=== PATIENT | female | born 1950 | race Caucasian/White ===

== ENCOUNTER 2017-01-22 11:31 | Observation (INO) | payer OTHER ==
[~2017-01-22] VITALS: Ht 160 cm; Wt 94.3 kg
--- NOTE | ~2017-01-22 | EKG ---
PATIENT: MACHELLE MONROE UNIT #: [id number] Ventricular Rate: 60 BPM Atrial Rate: 60 BPM P-R Interval: 134 ms QRS Duration: 78 ms Q-T Interval: 442 ms QTC Calculation(Bezet): 442 ms P Century: 15 degrees Calculated R Century: 28 degrees Calculated T Century: 20 degrees Diagnosis Line: Normal sinus rhythm Diagnosis Line: Normal ECG Diagnosis Line: When compared with ECG of 17-MAY-2014 06:37, Diagnosis Line: Nonspecific T wave abnormality no longer evident Diagnosis Line: in Anterior leads Diagnosis Line: Confirmed by MARIA C QIU MD ([id number]) on 01/24/2017 Diagnosis Line: 2:49:07 PM INTERPRETING MD: UYEN JENKINS
--- NOTE | ~2017-01-22 | DS ---
Unit #: [id number] #: [id number] Patient: MACHELLE GALICIA [id number] [address] [address] [id number] I MR#: [id number] NAME: MACHELLE GALICIA. ROOM: [facility] Age: 66 Sex: F Admission Date: 01/22/2017 : 1950 Discharge Date: 01/23/2017 Attending Physician: Karissa Gilbert M.D. Primary Care Physician: Garcia Peace M.D. DISCHARGE SUMMARY PRINCIPAL DIAGNOSES 1. Syncope secondary to orthostatic hypotension. 2. Atypical chest pain. 3. Dementia, moderate. 4. History of depression. 5. Hyperlipidemia. 6. Gastroesophageal reflux disease. 7. Obesity. 8. Remote history of breast cancer. 9. Irritable bowel syndrome. CONSULTANTS Dr. Posada - Cardiology. PROCEDURES 1. Two dimensional echocardiogram, report of which has not made it to the chart. 2. Chest x-ray on January 22, 2017, with no acute findings. Minimally tortuous aorta noted. CLINICAL HISTORY/HOSPITAL COURSE Ms. Galicia is a 66-year-old female who was brought to the emergency department after passing out on the way to [facility]. Patient was placed in observation for further evaluation. Cardiology was consulted and patient was found to have positive orthostatics. She has a history of orthostatic hypotension. She is also on Zoloft which occasionally can cause orthostasis. Her dose of ProAmatine has been increased and her orthostasis has resolved. I also am going to discontinue her Zoloft. Other chronic conditions remain stable and she can be discharged home today. DISCHARGE CONDITION Stable. DISCHARGE STATUS Discharge to home. DISCHARGE MEDICATIONS 1. ProAmatine 10 mg p.o. t.i.d. 2. Namenda 10 mg b.i.d. 3. Donepezil 10 mg at bedtime. 4. Lipitor 10 mg daily. 5. Omeprazole 40 mg daily. Unit #: [id number] #: [id number] Patient: MACHELLE GALICIA 6. Vitamin D3 1000 units p.o. daily. 7. Please note - I am discontinuing Zoloft. DISCHARGE INSTRUCTIONS Patient instructed to follow a heart healthy diet. She can increase her activity as tolerated. FOLLOWUP Patient will follow up with Dr. Garcia Peace in two weeks. Dictated by... Karissa Gilbert M.D. BRYNN/alin TD: 01/25/2017 10:30 JOB #: [id number] DISCHARGE SUMMARY Page 1 of 1 X Karissa Gilbert MD X DISCHARGE SUMMARY
--- NOTE | ~2017-01-22 | HP ---
Unit #: [id number] #: [id number] Patient: MACHELLE MONROE [id number] [address] [place], [place] [address] [id number] I MR#: [id number] NAME: MACHELLE MONROE. ROOM: 553 Age: 66 Sex: F Admission Date: 01/22/2017 : 1950 Attending Physician: Barb Fields M.D. Primary Care Physician: Garcia Peace M.D. HISTORY AND PHYSICAL CHIEF COMPLAINT Near syncopal episode. HISTORY OF PRESENT ILLNESS The patient is a 66-year-old female with a history of dementia, resident of the assisted living home, was on the way to the [place]. The patient was getting out of the bus and had a near syncopal episode. At the time of the near syncope the patient also complained of the chest pain and patient was diaphoretic and pale and the patient passed out and was assisted to the ground by the staff. The patient is a poor historian and the history is obtained by speaking to the patient's son at the bedside. Patient has no history of any loss of consciousness or seizures. The patient denies any nausea and vomiting or chills. The patient is being admitted for the above reasons. PAST MEDICAL HISTORY History of hypertension, hyperlipidemia, dementia, Alzheimer's, irritable bowel syndrome, remote history of breast cancer in remission per patient and son. PAST SURGICAL HISTORY Breast cancer surgery, cholecystectomy, foot surgery. HOME MEDICATIONS Patient is on Lipitor, donepezil, memantine, ProAmatine and Prilosec, Zoloft and vitamin D3. FAMILY HISTORY Reviewed and none. SOCIAL HISTORY No history of smoking cigarettes, drinking alcohol or any illicit drug abuse. REVIEW OF SYMPTOMS Positive for near syncopal episode and chest pain and diaphoresis and the pallor and no nausea or vomiting and other systems have been reviewed and all other systems were negative. PHYSICAL EXAMINATION GENERAL APPEARANCE: On examination the patient is lying on a bed, not in acute distress. VITAL SIGNS: Temperature is 97.5, pulse 63, respiratory rate 24, blood pressure 154/87, sating 98% at room air. Unit #: [id number] #: [id number] Patient: MACHELLE MONROE HEENT: Head atraumatic and normocephalic. Pupils equal, round and reacting to light and accommodation. Extraocular movements are intact. NECK: Supple. LUNGS: Decreased air entry at the bases. HEART: Regular rate and rhythm. ABDOMEN: Soft, positive bowel sounds. EXTREMITIES: No cyanosis. No clubbing. NEUROLOGIC: Awake, alert and oriented x1. DIAGNOSTIC STUDIES LABORATORY DATA: Troponin less than 0.05 and WBCs 8.8, hemoglobin is 14.6, hematocrit 45 and platelets 211, lactic acid is 2, sodium 140, potassium 3.9, chloride 105, bicarb 25, glucose 112, BUN 16, creatinine 0.8, AST 23, ALT 14, alkaline phosphatase 112, albumin is 4.1 and UA shows trace leukocyte esterase, 1+ protein and urine WBCs 2 to 5 and bacteria 1+. BNP is 58. INR is 1.1. Troponin is less than 0.05. ASSESSMENT 1. Near syncopal episode. 2. Chest pain. 3. Dementia. PLAN 1. Plan to admit to the observation. 2. Patient will have a cardiology evaluation and serial troponins and check the echocardiogram and orthostasis. 3. Further recommendations will follow as more labs results are available. Dictated by Ani Fallon/enzo TD: 01/22/2017 21:59 JOB #: [id number] HISTORY AND PHYSICAL Page 1 of 1 X BARB FIELDS MD X HISTORY AND PHYSICAL
--- NOTE | ~2017-01-22 | CR72 ---
[facility] A Service of [facility] & [facility] RADIOLOGY TEXT RESULTS PATIENT: MACHELLE MONROE LOCATION: [place] [address]- : [birth year] UNIT #: [id number] AGE: [address]: Karissa Gilbert MD SEX: F ORDER DR: [id number] [facility] [address] [place], [place] [address] [id number] MR#: [id number] Acc #: [id number] NAME: MACHELLE MONROE. : 1950 SEX: F STUDY DATE/TIME: 01/22/2017 UNIT: [facility] ROOM: [facility] STUDY DESCRIPTION: CR Chest Single View Portable Attending Physician: Trevor Fields M.D. Ordering Physician: Shaila Jackson M.D. Primary Care Physician: Garcia Peace M.D. MEDICAL IMAGING REPORT This report is preliminary unless electronic signature is present EXAM Chest portable 01/22/2017 1157 hours HISTORY 66-year-old woman with chest pain, shortness of air and syncope today. COMPARISON 10/24/2014. FINDINGS Portable upright chest demonstrates stable heart size at the upper limits of normal. There is a mildly tortuous aorta without change. The pulmonary vascularity is normal. The lungs are clear and there are no effusions. IMPRESSION Stable heart size at the upper limits of normal with minimally tortuous aorta, unchanged from 10/24/2014. The lungs are clear and there are no effusions. Dictated by... Irma Arreola M.D. THIS IS AN ELECTRONICALLY VERIFIED REPORT Irma Arreola M.D. at 01/23/2017 3:27 PM DERRICK/zhen TD: 01/22/2017 18:23 JOB #: [id number] MEDICAL IMAGING REPORT Page 1 of 1 COPY
--- NOTE | ~2017-01-22 | HM ---
Unit #: [id number] #: [id number] Patient: MACHELLE MONROE [id number] [address] [address] [id number] I MR#: [id number] NAME: MACHELLE MONROE. : 1950 SEX: F STUDY DATE/TIME: UNIT: C5B ROOM: 553 STUDY DESCRIPTION: Holter Monitor Attending Physician: Karissa Gilbert M.D. Primary Care Physician: Garcia Peace M.D. CARDIOLOGY REPORT EXAM Holter Monitor DATE APPLIED 01/22/2017 DATE SCANNED 01/26/[address] Delgado READ BY Dr. Posada REASON FOR TEST Chest pain. COMMENTS 1. Underlying rhythm is normal sinus with an average heart rate of 60 per minute, minimum recorded heart rate is 50, maximum recorded heart rate 86. 2. 39 isolated PVCs were recorded. There were 10 premature atrial contractions with one couplet. 3. There is no AV henok block, sinus arrest or sinus pause. 4. No significant ventricular or atrial tachyarrhythmia was noted. IMPRESSION 24 hour ambulatory monitoring is within normal limits. Dictated by... Ani Weir/alin TD: 01/27/2017 07:29 JOB #: [id number] Unit #: [id number] #: [id number] Patient: MACHELLE MONORE CARDIOLOGY REPORT Page 1 of 1 X Perry Posada MD HOLTER MONITOR REPORT
--- NOTE | ~2017-01-22 | CO ---
Unit #: [id number] #: [id number] Patient: MACHELLE MONROE [id number] [facility]. [address] [place], [place] [address] [id number] I MR#: [id number] NAME: MACHELLE MONROE ROOM: [facility] Age: 66 Sex: F Admission Date: 01/22/2017 : 1950 Attending Physician: Karissa Gilbert M.D. Primary Care Physician: Garcia Peace M.D. Consultation Date: 01/22/2017 CONSULTATION REPORT REASON FOR CONSULTATION Syncope and chest pain. HISTORY OF PRESENT ILLNESS This is a 66-year-old white female, who has a history of Alzheimer's and is unable to provide a history. Information has been obtained from the chart as well as the son. According to the son, the patient was at the assisted living facility and became diaphoretic. The son states that she was assisted to the floor. There was no loss of consciousness. She apparently told the staff that she had an episode of chest pain at that time. She was brought into the emergency room for evaluation where she was found to be normotensive. Heart rate was stable. There was elevation of lactic acid at 2.0. Troponin initially is negative with no acute ischemic changes on an EKG. She has been seen by our group in 2013 for chest pain and underwent a stress test that was normal according to the discharge summary. She was orthostatic at that time, and was started on Midrin, which she continues to take. She has risk factors for ischemic heart disease includes hypertension, hyperlipidemia, and obesity. PAST MEDICAL HISTORY 1. 2D echocardiogram, 05/16/2014, showed an ejection fraction equal to 60% with mild concentric left ventricular hypertrophy. There was trace mitral regurgitation and trace tricuspid regurgitation. 2. Lexiscan Cardiolite stress test, 05/17/2014. Report is unavailable, but discharge summary states stress test was normal. 3. Hypertension. 4. Hyperlipidemia. 5. Orthostatic hypotension. 6. Irritable bowel syndrome. 7. Alzheimer's dementia. 8. Lifelong nonsmoker. 9. Obesity. 10. History of breast cancer. PAST SURGICAL HISTORY 1. Cholecystectomy. 2. Foot surgery. SOCIAL HISTORY The patient lives at assisted living facility. She is a retired solution specialist. She has never smoked. There is no record of illicit drug or alcohol use. Unit #: [id number] #: [id number] Patient: MACHELLE MONROE FAMILY HISTORY Negative for coronary artery disease according to the son. ALLERGIES Latex. HOME MEDICATIONS Lipitor 10 mg daily, Aricept 10 mg q.h.s., Namenda 10 mg b.i.d., ProAmatine 5 mg t.i.d., Prilosec 40 mg daily, Zoloft 50 mg daily, vitamin D3 1000 units daily. REVIEW OF SYSTEMS Unable to obtain because of the patient's dementia. PHYSICAL EXAMINATION VITAL SIGNS: Blood pressure is 155/68, heart rate 65, temperature 97.5, BMI 36. GENERAL: This is a 66-year-old, obese, white female, who is in no acute distress. NEUROLOGIC: She awakens, but is noted for confusion. There were no obvious focal weaknesses. NECK: Trachea is midline. No thyromegaly. No lymphadenopathy. No jugular venous distention. HEART: S1 and S2. Heart sounds are normal. No murmurs, rubs, or clicks. Regular rate and rhythm. LUNGS: Clear without rales, rhonchi, or wheeze. ABDOMEN: Soft and nontender with bowel sounds are present. EXTREMITIES: Without leg edema. SKIN: Warm and dry. DIAGNOSTIC STUDIES LABORATORY RESULTS: Glucose 112, BUN 16, creatinine 0.8. Sodium 140, potassium 3.9, BNP 58, lactic acid 2.0, D-dimer 370. Troponin less than 0.05 x2. White count 8.8, hemoglobin 14.6, hematocrit 45.0, platelet count 211. IMAGING STUDIES: Chest x-ray shows no active disease. CARDIOVASCULAR STUDIES: EKG; normal sinus rhythm, rate of 60 beats per minute, otherwise normal. IMPRESSION 1. Near syncope. 2. Chest pain, questionable etiology. 3. History of orthostatic hypotension. 4. Normal Lexiscan Cardiolite stress test in 2013. 5. Preserved left ventricular systolic function with an ejection fraction of 60%. 6. Hypertension. 7. Hyperlipidemia. PLAN 1. Cardiology was consulted for near syncope and chest pain. We will continue to trend cardiac enzymes and troponin to rule out myocardial infarction. EKG is normal. 2. Repeat 2D echocardiogram to evaluate left ventricular systolic function. 3. A 24-hour Holter monitor will be done to rule out arrhythmias. Unit #: [id number] #: [id number] Patient: MACHELLE MONROE 4. Orthostatic blood pressures will be obtained. 5. We will follow the patient with you. Thank you for allowing us to assist with this patient's care. Dictated by... iJgnesh Deleon A.P.R.N. for Ani Lorenzo/laurie TD: 01/25/2017 02:46 JOB #: [id number] CC: [email or web address] CONSULTATION REPORT Page 1 of 1 X Jignesh Deleon APRN X CONSULTATION REPORT
--- NOTE | ~2017-01-22 | EKG ---
PATIENT: MACHELLE MONROE UNIT #: [id number] Ventricular Rate: 58 BPM Atrial Rate: 58 BPM P-R Interval: 146 ms QRS Duration: 82 ms Q-T Interval: 474 ms QTC Calculation(Bezet): 465 ms P [place]: 17 degrees Calculated R [place]: 17 degrees Calculated T [place]: 23 degrees Diagnosis Line: Sinus bradycardia Diagnosis Line: Otherwise normal ECG Diagnosis Line: When compared with ECG of 22-JAN-2017 11:35, Diagnosis Line: (unconfirmed) Diagnosis Line: No significant change was found Diagnosis Line: Confirmed by MARIA C QIU MD ([id number]) on 01/24/2017 Diagnosis Line: 3:01:45 PM INTERPRETING MD: UYEN JENKINS
[~2017-01-22 11:31] MED LIST: ACETAMINOPHEN PO; ALOSETRON 1 MG; AMLODIPINE-BENA1 CA1 PO; ARICEPT5 M1 PO; ASPIRIN PO; ATARAX PO; BENTYL10 MG PO; CALCIUM 500 + D1 TAB PO; CENTRUM PO; FLAX SEED OIL1000 MG PO; FLEXERIL PO; GLUCOSAMINE CHRONDR; HCTZ PO; HYDROCHLOROTH12.5 MG PO; HYDROCODON-ACE1 EAC7 PO; HYDROCORTISONE28 GM TOP; IBUPROFEN 200 MG; LOTREL PO; LYSINE 500 MG; PAXIL PO; POTASSIUM 99 MG; RIVASTIGMINE1.5 MG PO; SIMVASTATIN20 MG PO; VICODIN 5/500 T1 TAB PO; VIT E PO; VITAMIN B COMPLEX; VITAMIN C PO; VYTORIN 10/40 T1 TAB PO; ZINC SULFATE PO; [UNRECOGNIZED DRUG - OTHER]; [UNRECOGNIZED DRUG - OTHER] PO
[2017-01-22] MEDS ORDERED: ATORVASTATIN CA10 MG PO (12:10)
[2017-01-22] MEDS ORDERED: PATIENT'S PHARMACY (12:10)
[2017-01-22] MEDS ORDERED: DONEPEZIL HCL10 MG PO (12:10)
[2017-01-22] MEDS ORDERED: PROAMATINE10 MG PO (12:10)
[2017-01-22] MEDS ORDERED: MEMANTINE HCL5 MG PO (12:10)
[2017-01-22] MEDS ORDERED: ZOLOFT PO (12:11)
[2017-01-22] MEDS ORDERED: VITAMIN D31000 UNIT PO (12:11)
[2017-01-22] MEDS ORDERED: PRILOSEC PO (12:11)
[2017-01-22 12:20] LABS: POC - CKMB 1.1 ng/mL (0.0-7.9); POC - TROPONIN <0.05 ng/mL (<=0.05)
[2017-01-22 12:21] LABS: URINE SOURCE CATH
[2017-01-22 12:39] LABS: BASOPHIL# 0.1 X10e3 (0-0.3); BASOPHIL% 0.7 % (0-2.5); EOSINOPHIL# 0.1 X10e3 (0-0.7); EOSINOPHIL% 0.7 % (0.0-7.0); HEMOGLOBIN 14.6 gm/dL (12.0-16.0); LYMPHOCYTE# 1.2 X10e3 (1.0-3.5); LYMPHOCYTE% 13.9 % (17.0-45.0); MEAN CELL VOLUME 76.6 FL (83-96); MEAN CORPUSCULAR HEMOGLOBIN 24.9 PG (28-34); MEAN CORPUSCULAR HGB CONC 32.5 g/dL (30-36); MEAN PLATELET VOLUME 9.9 FL (6.5-11.5); MONOCYTE# 0.7 X10e3 (0-1.0); MONOCYTE% 7.4 % (3.0-12.0); NEUTROPHIL# 6.8 X10e3 (1.5-7.1); NEUTROPHIL% 77.3 % (40-75); PLATELET COUNT 211 X10e3 (140-420); RED BLOOD COUNT 5.88 X10e (3.90-5.30); RED CELL DISTRIBUTION WIDTH 15.6 % (11.0-15.5); WHITE BLOOD COUNT 8.8 X10e3 (4.0-10.5)
[2017-01-22 12:42] LABS: DIFF IND NO
[2017-01-22 12:51] LABS: INR 1.1; PARTIAL THROMBOPLASTIN TIME 24.7 SECONDS (23.5-31.3); PROTHROMBIN TIME (PATIENT) 11.5 SECONDS (10.0-11.7)
[2017-01-22 12:52] LABS: URINE APPEARANCE CLOUDY; URINE BLOOD NEG (NEG); URINE COLOR DK YELLOW; URINE GLUCOSE NEG (NEG); URINE KETONE TRACE (NEG); URINE LEUKOCYTE ESTERASE TRACE (NEG); URINE NITRATE NEG (NEG); URINE PH 5.5 (5-8); URINE PROTEIN 1+ (NEG); URINE SPECIFIC GRAVITY 1.027 (1.003-1.035)
[2017-01-22 12:54] LABS: URINE SQUAMOUS EPITHELIAL CELL OCC /[HPF]
[2017-01-22 13:06] LABS: ALBUMIN SERUM 4.1 g/dL (3.5-5.0); BILIRUBIN, DIRECT 0.2 mg/dL (0.0-0.2); BILIRUBIN,INDIRECT 0.6 mg/dL (0.0-0.9); BILIRUBIN,TOTAL 0.8 mg/dL (0.2-2.0); CALCIUM SERUM 9.5 mg/dL (8.4-10.2); CREATININE SERUM 0.8 mg/dL (0.6-1.4); GLOM FILT RATE Estimated 77.4 mL/min (>60); POTASSIUM 3.9 mmol/L (3.5-5.1); PROTEIN TOTAL SERUM 7.6 g/dL (6.0-8.3)
[2017-01-22 13:14] LABS: URINE BILIRUBIN NEG (NEG)
[2017-01-22 13:16] LABS: U HYALINE CASTS AUWI 25-50 /[LPF]; URINE MUCUS PRESENT
[2017-01-22 13:17] LABS: CULTURE INDICATED? YES; URINE BACTERIA AUWI 1+ (NEGATIVE)
[2017-01-22 13:57] LABS: POC - CKMB <1.0 ng/mL (0.0-7.9); POC - TROPONIN <0.05 ng/mL (<=0.05)
[2017-01-22 22:30] LABS: %MB 1.4 % (0.0-4.0); MB 1.5 ng/ml
[2017-01-23 05:33] LABS: HEMATOCRIT 42.8 % (35.0-45.0); HEMOGLOBIN 13.9 gm/dL (12.0-16.0); MEAN CORPUSCULAR HEMOGLOBIN 24.7 PG (28-34); MEAN CORPUSCULAR HGB CONC 32.5 g/dL (30-36); MEAN PLATELET VOLUME 9.6 FL (6.5-11.5); RED BLOOD COUNT 5.64 X10e (3.90-5.30); RED CELL DISTRIBUTION WIDTH 15.4 % (11.0-15.5); WHITE BLOOD COUNT 8.1 X10e3 (4.0-10.5)
[2017-01-23 06:05] LABS: BUN/CREATININE RATIO 21.42; CALCIUM SERUM 8.8 mg/dL (8.4-10.2); CREATININE SERUM 0.7 mg/dL (0.6-1.4); GLOM FILT RATE Estimated 90.9 mL/min (>60); POTASSIUM 3.6 mmol/L (3.5-5.1)
[2017-01-23 06:39] LABS: %MB 0.8 % (0.0-4.0); MB 1.7 ng/ml
[2017-01-23] MEDS ORDERED: PROAMATINE10 MG PO (15:35)
[2017-01-23 15:58] LABS: IRON SERUM 73 ug/dL (28-170); TOTAL IRON BINDING CAPACITY 313 ug/dL (269-535); TRANSFERRIN 224 mg/dL (192-382); TRANSFERRIN SATURATION 23 % (20-50)
== END 2017-01-23 16:50 | disposition home or self-care (01) | DRG 312 ==
LOC: CED 11:31 → CEDOF 13:40 → CED 14:07 → C5B 14:55 → CEDOF 14:55 → C5B 01-23 05:26
PROVIDERS: Emergency Medicine; Internal Medicine
DX: I95.1 Orthostatic hypotension (principal); R07.89 Other chest pain; F03.90 Unspecified dementia, unspecified severity, without behavioral disturbance, psychotic disturbance, mood disturbance, and anxiety; E78.5 Hyperlipidemia, unspecified; K58.9 Irritable bowel syndrome, unspecified; I10 Essential (primary) hypertension; K21.9 Gastro-esophageal reflux disease without esophagitis; E66.9 Obesity, unspecified; Z68.36 Body mass index [BMI] 36.0-36.9, adult; Z85.3 Personal history of malignant neoplasm of breast; Z79.899 Other long term (current) drug therapy
CPT/HCPCS: 36415; 51701; 71010; 80048; 80076; 81003; 82550; 82553; 83540; 83550; 83605; 83880; 84484; 85025; 85027; 85379; 85610; 85730; 87086; 93005; 93225; 93226; 93306; 96372; 99285; G0378; J1650